=== PATIENT | male | born 1960 | race Caucasian/White ===

== ENCOUNTER 2016-12-19 07:00 | Outpatient (CLI) | payer OTHER ==
[~2016-12-19] VITALS: Ht 172.7 cm; Wt 85.7 kg
[2016-12-19] VITALS (8 sets, daily range): BP systolic 120–150; BP diastolic 80–96; PULSE 16–70
[2016-12-19] MEDS ORDERED: PRILOSEC 20MG20 MG PO (07:23)
[2016-12-19] MEDS ORDERED: PRED FORTE 1 ML1 ML OD (07:26)
[2016-12-19] MEDS ORDERED: [UNRECOGNIZED DRUG - OTHER] (07:28)
[2016-12-19 10:24] LABS: CEREBROSPINAL TUBE #3; CSF APPEARANCE CLEAR; CSF COLOR COLORLESS
[2016-12-22 09:26] LABS: ALBUMIN CSF 18.1 mg/dL (<=27.0); CSF IGG/ALBUMIN 0.06 (<=0.21)
[2016-12-22 09:40] LABS: CSF-IGG INDEX 0.5 (<=0.85); IGG/ALBUMIN SERUM 0.12 (<=0.40)
== END 2016-12-19 11:01 | disposition home or self-care (01) ==
LOC: COL.RAD 07:00
PROVIDERS: Psychiatry & Neurology Neurology
DX: G93.89 Other specified disorders of brain (principal)